=== PATIENT | female | born 1970 | race Caucasian/White ===

== ENCOUNTER 2017-09-19 11:29 | Outpatient (CLI) | payer OTHER | END 2017-09-19 11:30 | disposition home or self-care (01) | LOC: BICRAD 11:29 | PROVIDERS: ATTEND Nurse Practitioner Family | DX: M54.5 Low back pain (principal) | CPT/HCPCS: 72100 ==

== ENCOUNTER 2017-11-25 10:11 | Outpatient (CLI) | payer OTHER ==
--- NOTE | 2017-11-25 12:20 | RAD ---
FOUR VIEWS LUMBAR SPINE INCLUDING FLEXION AND EXTENSION VIEWS: DATE: 11/25/17. HISTORY: Other intervertebral disk degeneration. History of prior low back pain. FINDINGS: There are 5 [id number] lumbar-type vertebral bodies. There is a suggestion of trace anterolist hesis of L4 on L5 with flexion which does appear to correct with extension. No additional level of s ubluxation is seen. There is no evidence of a fracture. The vertebral body heights are within mir l limits. IMPRESSION: Trace anterolisthesis of L4 on L5 which appears to correct on extension when compared to flexion. POS: AMIRA
--- NOTE | 2017-11-25 14:49 | MRI ---
MRI LUMBAR SPINE NONCONTRAST: DATE: 11-25-17 HISTORY: 47-year-old female with M51.36 other intervertebral disc degeneration. Low back pain. COMPARISON: none FINDINGS: For the purposes of this report, it will be assumed that there are 5 lumbar-type vertebrae. The vert ebral body heights are maintained. Alignment is normal. No major pathology of perivertebral spaces. Nonspecific heterogeneous bone marro w signal. Mild disc space narrowing at L5-S1. No severe disc space narrowing at any level. Conus medu llaris terminates at lower L2. The findings by individual levels are as follows: T12-L1: Normal. L1-2: Normal. L2-3: Normal. L3-4: Normal. L4-5: Bilateral mild to moderate degenerative facet changes, including right facet joint effusion. Mi ld to moderate right neural foraminal stenosis. No high grade left neural foraminal stenosis. Small c entral disc protrusion indents the ventral aspect of the thecal sac. No central spinal canal stenosis . Posterior epidural fat pad. Mild thecal sac stenosis. L5-S1: No central or neural foraminal stenosis. No high grade facet DJD. Small central disc herniatio n abuts the thecal sac without significantly narrowing it. IMPRESSION: Mild lumbar spondylosis with mild degenerative disc changes at L4-5 and L5-S1, and mild to moderate f acet osteoarthrosis at L4-5. FERMIN Caballero POS: AMIRA
== END 2017-11-25 10:12 | disposition home or self-care (01) ==
LOC: TBSIIMAG 10:11
PROVIDERS: ATTEND Neurological Surgery
DX: M51.36 Other intervertebral disc degeneration, lumbar region (principal); M47.896 Other spondylosis, lumbar region; M47.897 Other spondylosis, lumbosacral region; M43.16 Spondylolisthesis, lumbar region
CPT/HCPCS: 72120; 72148

== ENCOUNTER 2017-12-26 08:05 | Day surgery (SDC) | payer OTHER ==
[2017-12-20 11:10] VITALS: BMI 35.7
[2017-12-26] MEDS ORDERED: CEFAZOLIN/Water 2 GM/20 ML SYRINGE ONE (10:29)
[2017-12-26] MEDS ORDERED: Sodium Chloride 0.9% 10 ML ONE (11:05)
[2017-12-26] MEDS ORDERED: Fentanyl 250 MCG/5 ML VIAL ONE (11:11)
[2017-12-26] MEDS ORDERED: Midazolam HCl 2 mg/2 ml Vial ONE (11:11)
--- NOTE | 2017-12-26 12:30 | OP ---
DATE OF PROCEDURE: 12/26/2017 SURGEON: Alexandru Armstrong M.D. DIRECTOR SPEECH LANGUAGE: Heron Vargas PA-C PROCEDURES: Left L4-L5 laminectomy, facetectomy, foraminotomy, interbody arthrodesis, intravertebral biomechanical device, local morselized autograft, demineralized bone matrix, posterior lateral arthr odesis L4-5, pedicle screw instrumentation L4-L5. PROCEDURE IN DETAIL: The patient was brought to the operating room and intubated. She was rolled in the prone position on gel-filled chest rolls. Incision made exposing L4 and L5 bilaterally and our level was confirmed by x-ray. We performed left L4-5 laminectomy and facetectomy and identified some extensive synovial debris that was erosive into the facet capsule. We did send several specimens fo r pathologic examination of synovial tissue. A complete facetectomy was performed and a complete dec ompression of left L4 and left L5 was achieved. We then incised the intervertebral disk and complete ly removed it. The bony endplates were decorticated for the purpose of arthrodesis and appropriately sized intravertebral biomechanical PEEK device was brought into the field, filled with demineralized bone matrix, local morselized autograft, and tapped into place securely at L4-5. Next, pedicle scre ws were placed at left L4 and left L5 using lateral fluoroscopic guidance. A derek was secured between the screws, connected by nuts. Compression was applied and the nuts were final tightened. The woun d was then extensively irrigated, immaculate hemostasis was secured. A combination of demineralized bone matrix, local morselized autograft was laid over the right laminar and posterolateral surfaces f or the purpose of arthrodesis. Vancomycin powder was applied and the wound was then closed in anatom ic layers.
[2017-12-26] MEDS ORDERED: Fentanyl 100 MCG/2 ML VIAL ONE ×2 (13:03→13:26)
[2017-12-26] MEDS ORDERED: HYDROmorphone 2 MG/ML VIAL ONE (13:28)
[2017-12-26] MEDS ORDERED: Promethazine HCl 25 MG/ML VIAL ONE (13:52)
[2017-12-26] MEDS ORDERED: Ketorolac Tromethamine 30 MG/ML VIAL ONE (14:05)
[2017-12-26] MEDS ORDERED: Morphine 4 MG/ML VIAL ONE (14:36)
[2017-12-26] MEDS ORDERED: HYDROcodone/Acetaminophen 10/325 mg Tablet ONE (15:05)
== END 2017-12-26 16:37 | disposition home or self-care (01) ==
LOC: SDC 08:05
PROVIDERS: ATTEND Neurological Surgery
PROC: 0SG00AJ Fusion of Lumbar Vertebral Joint with Interbody Fusion Device, Posterior Approach, Anterior Column, Open Approach (ICD-10-PCS; principal; 2017-12-26)
PROC: 0SG0071 Fusion of Lumbar Vertebral Joint with Autologous Tissue Substitute, Posterior Approach, Posterior Column, Open Approach (ICD-10-PCS; principal; 2017-12-26)
DX: M51.16 Intervertebral disc disorders with radiculopathy, lumbar region (principal); Z79.899 Other long term (current) drug therapy
CPT/HCPCS: 76001; 88304; 96374; A4216; C1713; C1768; J1170; J1885; J2250; J2270; J2550; J3010; J3370; J3490

== ENCOUNTER 2018-01-05 09:21 | Outpatient (CLI) | payer OTHER | END 2018-01-05 09:22 | disposition home or self-care (01) | LOC: BICRAD 09:21 | PROVIDERS: ATTEND Physician Assistant | DX: M51.9 Unspecified thoracic, thoracolumbar and lumbosacral intervertebral disc disorder (principal); Z98.890 Other specified postprocedural states | CPT/HCPCS: 72100 ==

== ENCOUNTER 2018-01-13 14:02 | Emergency (ER) | payer OTHER ==
[2018-01-13] MEDS ORDERED: Ketorolac Tromethamine 60 MG/2 ML VIAL ONE (15:46)
--- NOTE | 2018-01-13 16:05 | ULT ---
VENOUS DOPPLER ULTRASOUND OF THE LEFT LOWER EXTREMITY: HISTORY: Back surgery, left lower extremity pain and edema. TECHNIQUE: De La Torre scale ultrasound with color flow and spectral Doppler imaging of the deep venous system of the l eft lower extremity is performed. FINDINGS: There is good flow, compression, and augmentation noted in the left common femoral, femoral, deep fem oral, popliteal, posterior tibial, and the visualized portions of the greater saphenous veins. IMPRESSION: No evidence of deep vein thrombosis in the left lower extremity. POS: C
--- NOTE | 2018-01-21 11:53 | EKG ---
Test Reason : Blood Pressure : / mmHG Vent. Rate : 085 BPM Atrial Rate : 085 BPM P-R Int : 140 ms QRS Dur : 080 ms QT Int : 370 ms P-R-T Axes : 007 016 028 degrees QTc Int : 440 ms Sinus rhythm with Premature atrial complexes Possible Anterior infarct , age undetermined Abnormal ECG Confirmed by JARROD MANZO DO ([id number]), telegraph editor BROOKLYN TRIVEDI ([id number]) on 01/21/2018 11:52:50 AM Referred By: Confirmed By:JARROD MANZO DO
== END 2018-01-13 17:07 | disposition home or self-care (01) ==
LOC: ERS 14:02
DX: M79.662 Pain in left lower leg (principal); E03.9 Hypothyroidism, unspecified; I10 Essential (primary) hypertension; F41.9 Anxiety disorder, unspecified; Z87.891 Personal history of nicotine dependence
CPT/HCPCS: 93005; 96372; J1885

== ENCOUNTER 2018-03-07 13:38 | Outpatient (CLI) | payer OTHER ==
--- NOTE | 2018-03-07 15:02 | RAD ---
LUMBAR SPINE TWO VIEWS: History: 47-year-old female with history of low back pain and M51.36, follow up surgery. FINDINGS: Left L4-5 pedicle screws with intradiscal prosthesis. No significant malalignment. Stable from prior study, 10-19-17. IMPRESSION: Stable post-operative changes at L4-5 with left sided pedicle screws. POS: AMIRA
== END 2018-03-07 13:39 | disposition home or self-care (01) ==
LOC: TBSIIMAG 13:38
PROVIDERS: ATTEND Neurological Surgery
DX: M51.36 Other intervertebral disc degeneration, lumbar region (principal); Z98.890 Other specified postprocedural states
CPT/HCPCS: 72100

== ENCOUNTER 2018-08-22 13:39 | Outpatient (CLI) | payer OTHER ==
--- NOTE | 2018-08-22 16:07 | CT ---
CT LUMBAR SPINE WITHOUT CONTRAST: HISTORY: Low back pain. Pain radiates down the left leg. COMPARISON: None. FINDINGS: There are five lumbar type vertebral bodies. Lumbar spine vertebral body height is maintained. Ther e is no fracture. Unilateral left-sided transpedicular screw at L4 and L5. There does appear to be perihardware lucency involving the left L5 transpedicular screw. There is a facetectomy at L4, on th e left. Disk prosthesis at L4-L5. Of note, the prosthesis appears to extend beyond the posterior ma rgin of the disk and appears to be in the left subarticular zone, with extension into the left neural foramen. There appears to be associated abnormal soft tissue, which may represent scar tissue or re sidual disk material. Abnormal soft tissue is also noted inferior to the partially resected left L4 facet. Symmetric attenuation of the paraspinal and psoas muscles. There is mild posterior paraspinal muscle atrophy. Appropriate attenuation of the visualized solid organs. No retroperitoneal mass, lymphade nopathy, or hematoma. Limited evaluation of the contents of the central spinal canal and neural foramina due to technique. T11-T12/T12-L1: No significant central canal stenosis or foraminal narrowing. L1-L2: No significant central canal stenosis or neural foraminal narrowing. L2-L3: No significant central canal stenosis or neural foraminal narrowing. L3-L4: Minimal generalized disk bulge. No significant central canal stenosis or foraminal narrowing . L4-L5: As stated above, there is abnormal soft tissue attenuation in the left subarticular zone and the left neural foramen and inferior to the partially resected left facet. There is no significant c entral canal stenosis. The right neural foramen is mildly narrowed. There is limited evaluation of the left neural foramen, but there is presumed to be significant left foraminal narrowing. L5-S1: Central disk protrusion abuts the thecal sac. No significant central canal stenosis. Mild b ilateral foraminal narrowing. IMPRESSION: 1. Left-sided fusion changes, as detailed above. There is perihardware lucency involving the left-s ided transpedicular screw. This screw extends beyond the anterior margin of the vertebral body. 2. Abnormal soft tissue attenuation involving the left lateral recess and left neural foramen, which may in part be due to disk prosthesis, as well as post surgical scar. CODE T POS: OFF
== END 2018-08-22 13:40 | disposition home or self-care (01) ==
LOC: TBSIIMAG 13:39
PROVIDERS: ATTEND Neurological Surgery
DX: M54.5 Low back pain (principal); R93.7 Abnormal findings on diagnostic imaging of other parts of musculoskeletal system; Z98.1 Arthrodesis status
CPT/HCPCS: 72131

== ENCOUNTER 2018-11-06 07:47 | Inpatient (IN) | payer OTHER ==
[2018-11-06] MEDS ORDERED: Sodium Chloride 0.9% 10 ML ONE (08:27)
[2018-11-06 08:47] LABS: #Basophils 0.1 thou/uL (0.0-0.2); #Eosinphils 0.2 thou/uL (0.0-0.7); #Lymphocytes 2.6 thou/uL (1.20-3.40); #Monocytes 0.6 thou/uL (0.11-0.59); #Neutrophils 4.1 thou/uL (1.40-6.50); %Basophils 1.2 % (0.0-1.0); %Lymphocytes 33.8 % (21.0-51.0); %Monocytes 8.3 % (0.0-10.0); %Neutrophils 53.8 % (42.0-75.0); Hemoglobin 14.3 g/dL (12.0-16.0); Mean Corpuscular HGB CONC 33.5 g/dL (32.0-36.0); Mean Corpuscular Volume 95.7 fL (78.0-98.0); Mean Platelet Volume 7.5 fL (7.4-10.4); Platelet Count 341 thou/uL (130-400); RBC Distribution Width 14.2 % (11.5-14.5); Red Blood Cell (RBC) Count 4.46 mill/uL (4.20-5.40); White Blood Cell (WBC) Count 7.7 thou/uL (4.8-10.8)
[2018-11-06 09:06] LABS: Anion Gap 19 mmol/L (10-20); BUN (Urea Nitrogen) 10 mg/dL (7.0-18.7); Calc. Creatinine Clearance 151 mL/min (70-130); Calcium 9.5 mg/dL (7.8-10.44); Carbon Dioxide 16 mmol/L (22-29); Chloride 107 mmol/L (98-107); Estimated GFR-MDRD 89; Glucose 91 mg/dL (70-105); Potassium 4.3 mmol/L (3.5-5.1); Sodium 138 mmol/L (136-145)
[2018-11-06] MEDS ORDERED: Midazolam HCl 2 mg/2 ml Vial ONE (09:32)
[2018-11-06] MEDS ORDERED: Fentanyl 100 MCG/2 ML VIAL ONE ×5 (09:33→12:07)
[2018-11-06] MEDS ORDERED: PROPOFOL 200 MG/20 ML VIAL ONE (11:31)
[2018-11-06] MEDS ORDERED: Vecuronium 10 MG VIAL ONE (11:31)
[2018-11-06] MEDS ORDERED: Ondansetron PF 4 MG/2 ML Vial ONE (11:31)
[2018-11-06] MEDS ORDERED: Labetalol HCl 100 MG/20 ML VIAL ONE (11:31)
[2018-11-06] MEDS ORDERED: Dexamethasone 20 MG/5 ML VIAL ONE (11:31)
[2018-11-06] MEDS ORDERED: traMADol HCl 50 MG TAB PO PRN ×2 (11:48)
[2018-11-06] MEDS ORDERED: Morphine 4 MG/ML VIAL SLOW IVP PRN (11:48)
[2018-11-06] MEDS ORDERED: Promethazine HCl 25 MG/ML VIAL IM PRN (11:48)
[2018-11-06] MEDS ORDERED: diphenhydrAMINE 25 MG CAP PO PRN (11:48)
[2018-11-06] MEDS ORDERED: Mag-Al 1200 mg/1200 mg/30 ML UDCUP PO PRN (11:48)
[2018-11-06] MEDS ORDERED: Promethazine 25 MG TAB PO PRN (11:48)
[2018-11-06] MEDS ORDERED: Promethazine HCl 12.5 MG SUPP PR PRN (11:48)
[2018-11-06] MEDS ORDERED: Milk Of Magnesia 30 ML UDCUP PO PRN (11:48)
[2018-11-06] MEDS ORDERED: HYDROcodone/Acetaminophen 10/325 mg Tablet PO PRN (11:48)
[2018-11-06] MEDS ORDERED: Ondansetron PF 4 MG/2 ML Vial IM PRN (11:48)
[2018-11-06] MEDS ORDERED: diphenhydrAMINE 50 MG/ML VIAL IVP PRN (11:48)
[2018-11-06] MEDS ORDERED: Morphine 2 MG/ML SYRINGE SLOW IVP PRN (12:00)
--- NOTE | 2018-11-06 12:19 | OP ---
DATE OF PROCEDURE: 11/06/2018 NUDE MODEL: Justice. PROCEDURE PERFORMED: Exploration of spinal fusion, L4-L5; removal of hardware L4-L5; interbody arthrodesis; posterolateral arthrodesis; pedicle screw instrumentation, L4-L5; BMP. DESCRIPTION OF PROCEDURE: The patient was brought to the operating room and intubated. She was rolled in a prone position on gel-filled chest rolls. The previous incision was reopened and the L4-L5 level was exposed. Prior hardware was identified. The nuts and rods were removed and the L5 screw was found to be loose as anticipated, this was removed. We then explored the L4-L5 disk space, identified the interbody device and it did seem slightly protuberant posteriorly. It was significantly impacted into the intervertebral space and could not be easily removed. We therefore elected to tap the interbody device further into the L4-L5 space, which was accomplished for the purpose of interbody arthrodesis. Next, we placed a new right L5 pedicle screw, which did seem to be quite solid. This was connected by a derek and secured by nuts, which were final tightened. The wound was then extensively irrigated. MAC hemostasis was secured. A combination of BMP and demineralized bone matrix was placed inside a Gelfoam pledget and laid over the right L4-L5 lateral surfaces. Prior to this, the wound had been extensively irrigated and MAC hemostasis was secured. Vancomycin powder was applied and the wound was then closed in anatomic layers. Job ID: [id number]
[2018-11-06 12:36] VITALS: BMI 32.2
[2018-11-06] MEDS: HYDROcodone/Acetaminophen 10/325 mg Tablet PO PRN ×3 (13:00→21:52)
[2018-11-06] MEDS ORDERED: Acetaminophen/Codeine 30-300mg Tablet PO PRN (13:29)
[2018-11-06] MEDS: tiZANidine HCl 4 MG TAB PO PRN ×2 (13:35→22:50)
[2018-11-06] MEDS: CEFAZOLIN 2 GM in Premix Bag 1 BAG IVPB SCH (16:20)
[2018-11-06] MEDS ORDERED: DULoxetine 60 MG CAP PO SCH (21:00)
[2018-11-07] MEDS: CEFAZOLIN 2 GM in Premix Bag 1 BAG IVPB SCH (00:38)
[2018-11-07] MEDS: HYDROcodone/Acetaminophen 10/325 mg Tablet PO PRN ×2 (02:56→07:17)
[2018-11-07] MEDS ORDERED: Levothyroxine Sodium 125 MCG TAB PO SCH (06:00)
[2018-11-07 07:51] VITALS: BP 116/79; TEMP 97.9
--- NOTE | 2018-11-07 10:48 | DIS ---
DATE OF ADMISSION: 11/06/2018 DATE OF DISCHARGE: 11/07/2018 HOSPITAL COURSE: The patient is a 47-year-old female known to us for recent evaluation for left leg pain and progressive low back pain. On her noncontrast CT, she was found to have a posterior migrating interbody device and some halo around the left L5 screw. She underwent revision of her lumbar fusion with replacement of the left L5 screw and repositioning of the interbody device. BMP was placed. There were no complications during the surgery. Following the surgery, the patient was transitioned to the Med/Surg floor, where her pain was well controlled with p.o. medications, she was tolerating a regular diet, and she was voiding appropriately. LSO brace was provided, which the patient has been wearing for all out of bed activities. Her incision remained dry and intact. She reported improvement in her bilateral leg pain and some soreness at the incision site on her back. We will plan to dismiss the patient to home. Discussed home care precautions. We will follow up in 2 weeks. Job ID: [id number]
== END 2018-11-07 10:30 | disposition home or self-care (01) | DRG 460 ==
LOC: SURG A 07:47 → EDSTATUS 14:28
PROVIDERS: ADMIT Neurological Surgery; ATTEND Neurological Surgery
PROC: 0SG00K1 Fusion of Lumbar Vertebral Joint with Nonautologous Tissue Substitute, Posterior Approach, Posterior Column, Open Approach (ICD-10-PCS; principal; 2018-11-06)
PROC: 0SP004Z Removal of Internal Fixation Device from Lumbar Vertebral Joint, Open Approach (ICD-10-PCS; 2018-11-06)
PROC: 3E0U0GB Introduction of Recombinant Bone Morphogenetic Protein into Joints, Open Approach (ICD-10-PCS; 2018-11-06)
DX: T84.226A Displacement of internal fixation device of vertebrae, initial encounter (principal); I10 Essential (primary) hypertension; E07.9 Disorder of thyroid, unspecified; Y83.1 Surgical operation with implant of artificial internal device as the cause of abnormal reaction of the patient, or of later complication, without mention of misadventure at the time of the procedure
CPT/HCPCS: 76000; 80048; 85025; 93005; 93010; C1713; C1768; J0690; J1100; J2250; J2405; J2704; J3010

== ENCOUNTER 2018-11-08 16:39 | Emergency (ER) | payer OTHER ==
[2018-11-08] MEDS ORDERED: Morphine 4 MG/ML VIAL ONE ×2 (18:15→18:52)
[2018-11-08] MEDS ORDERED: Ondansetron PF 4 MG/2 ML Vial ONE (18:15)
[2018-11-08] MEDS ORDERED: Ondansetron ODT 4 MG TAB ONE (18:16)
[2018-11-08 18:51] LABS: #Eosinphils 0.4 thou/uL (0.0-0.7); #Lymphocytes 1.1 thou/uL (1.20-3.40); #Monocytes 0.6 thou/uL (0.11-0.59); #Neutrophils 5.5 thou/uL (1.40-6.50); %Basophils 0.3 % (0.0-1.0); %Eosinophils 5.3 % (0.0-10.0); %Lymphocytes 14.9 % (21.0-51.0); %Monocytes 7.3 % (0.0-10.0); %Neutrophils 72.3 % (42.0-75.0); Hemoglobin 12.6 g/dL (12.0-16.0); Mean Corpuscular HGB CONC 31.7 g/dL (32.0-36.0); Mean Corpuscular Hemoglobin 31.1 pg (27.0-31.0); Mean Corpuscular Volume 98.1 fL (78.0-98.0); Mean Platelet Volume 7.7 fL (7.4-10.4); Platelet Count 262 thou/uL (130-400); RBC Distribution Width 14.1 % (11.5-14.5); Red Blood Cell (RBC) Count 4.04 mill/uL (4.20-5.40); White Blood Cell (WBC) Count 7.6 thou/uL (4.8-10.8)
--- NOTE | 2018-11-08 19:11 | CT ---
CT LUMBAR SPINE WITHOUT CONTRAST: 11/08/18 HISTORY: Spinal surgery, 11/06/18. Low back pain not controlled by meds. COMPARISON: 08/22/18. FINDINGS: Vertebral body heights are maintained. No fracture or subluxation is identified. There are postop changes of unilateral pedicle screw placement on the left at L4-5 level with intradi scal prosthesis in good position. No perihardware lucencies identified. The interlocking vertical derek posteriorly is also intact. There is soft tissue swelling air in this region. Soft tissue air and soft tissue density in the subcutaneous fat of the lower back is consistent with postop change. There is soft tissue density in the left neural foramen inferior to the partially resected left facet at L4-5 level which was also seen on the previous exam. IMPRESSION: Postop changes in the lumbar spine. POS: AMIRA
[2018-11-08 19:19] LABS: ALT (SGPT) 34 U/L (8-55); AST (SGOT) 24 U/L (5-34); Albumin 4.2 g/dL (3.5-5.0); Alkaline Phosphatase 95 U/L (40-150); Anion Gap 13 mmol/L (10-20); BUN (Urea Nitrogen) 12 mg/dL (7.0-18.7); Bilirubin, Total 0.4 mg/dL (0.2-1.2); Calc. Creatinine Clearance 0 mL/min (70-130); Calcium 9.2 mg/dL (7.8-10.44); Carbon Dioxide 31 mmol/L (22-29); Chloride 98 mmol/L (98-107); Estimated GFR-MDRD 89; Globulin 3.3 g/dL (2.4-3.5); Glucose 90 mg/dL (70-105); Potassium 3.8 mmol/L (3.5-5.1); Protein, Total 7.5 g/dL (6.0-8.3); Sodium 138 mmol/L (136-145)
== END 2018-11-08 19:50 | disposition home or self-care (01) ==
LOC: ERS 16:39
DX: G89.18 Other acute postprocedural pain (principal); M54.5 Low back pain; K59.00 Constipation, unspecified; F17.210 Nicotine dependence, cigarettes, uncomplicated; I10 Essential (primary) hypertension; F41.9 Anxiety disorder, unspecified; Z79.899 Other long term (current) drug therapy; Z79.1 Long term (current) use of non-steroidal anti-inflammatories (NSAID)
CPT/HCPCS: 72131; 80053; 85025; 96372; J2270; J2405; Q0162

== ENCOUNTER 2018-11-21 08:46 | Outpatient (CLI) | payer OTHER ==
--- NOTE | 2018-11-21 09:42 | RAD ---
XR Lumbar Spine 2 Or 3 View History: M 43.16 spondylolisthesis of lumbar region Comparison: Radiograph 2018 Findings: New midline surgical lm. The lateral left L4-L5 posterior spinal fusion hardware with similar appearance of the unilateral left-sided discectomy cage which has posterior displacement approximately 5 mm. Anterolisthesis, 2 mm, is similar. Impression: New postoperative findings with posterior lateral subluxation of the interbody cage.
== END 2018-11-21 08:47 | disposition home or self-care (01) ==
LOC: TBSIIMAG 08:46
PROVIDERS: ATTEND Neurological Surgery
DX: M43.16 Spondylolisthesis, lumbar region (principal); S33.140A Subluxation of L4/L5 lumbar vertebra, initial encounter; Z98.890 Other specified postprocedural states
CPT/HCPCS: 72100

== ENCOUNTER 2019-02-21 14:08 | Outpatient (CLI) | payer OTHER ==
--- NOTE | 2019-02-21 15:49 | RAD ---
LUMBAR SPINE TWO VIEWS: HISTORY: Degenerative disk disease. Lumbar pain. COMPARISON: 11/21/2018 FINDINGS: Postoperative changes are again noted. Pedicle screws are seen on the left at L4-L5. There is a disk implant at this level which shows posterior displacement into the spinal canal. This posterior displacement has increased when compared to 11/21/2018. Vertebral bodies and disk spaces otherwise appear unchanged from the recent exam. Mild loss of disk s pace at L5-S1 again noted. IMPRESSION: Posterior displacement of the disk implant at L4-L5 into the spinal canal has increased. POS: TPC
== END 2019-02-21 14:09 | disposition home or self-care (01) ==
LOC: BICRAD 14:08
PROVIDERS: ATTEND Neurological Surgery
DX: M51.36 Other intervertebral disc degeneration, lumbar region (principal); M51.26 Other intervertebral disc displacement, lumbar region
CPT/HCPCS: 72100

== ENCOUNTER 2019-05-22 13:03 | Outpatient (CLI) | payer OTHER ==
--- NOTE | 2019-05-22 13:44 | RAD ---
Lumbar spine 2 views: 05/22/2019 COMPARISON: 02/21/2019 HISTORY: Evaluate lumbar spine following surgery, lumbar radiculopathy FINDINGS: Stable left-sided pedicle screw present at L4 and L5 with a vertically oriented interlocki ng derek. There is a stable intervertebral disc device at L4-5 demonstrating posterior migration overlying the expected location of the left lateral recess. Clips are noted in the right lower quadra nt. Bilateral mild lower lumbar spine facet hypertrophy is unchanged. IMPRESSION: Stable 2 view examination of the lumbar spine. Findings demonstrate a posteriorly displac ed intervertebral disc device at L4-5 as detailed above.
== END 2019-05-22 13:04 | disposition home or self-care (01) ==
LOC: TBSIIMAG 13:03
PROVIDERS: ATTEND Neurological Surgery
DX: M54.16 Radiculopathy, lumbar region (principal)
CPT/HCPCS: 72100

== ENCOUNTER 2019-09-28 07:17 | Day surgery (SDC) | payer OTHER ==
[2019-09-21 14:55] VITALS: BMI 28.1
[2019-09-28 07:57] VITALS: BP 127/79; TEMP 98.2
--- NOTE | 2019-09-28 08:56 | RAD ---
LUMBAR MYELOGRAM: HISTORY: Lumbar radiculopathy. EXPOSURE: 0.5 minutes, 92.7 mGy*^m2. FINDINGS: Two-view scouts lumbar spine radiograph demonstrates unilateral left-sided transpedicular screw at L4 and L5. There appears to be perihardware lucency involving the L4 and L5 screw. L4-L5 disc prosthesis, posterior to the L4-L5 disc space. No spondylolisthesis or spondylolysis. No fracture.. Successful lumbar myelogram. A total of 9 cc of Isovue-M 200 contrast was administered intrathecally at the L2-L3 level. TECHNIQUE: Consent was obtained to perform a lumbar myelogram. Patient's back was evaluated. The L2-L3 level was deemed appropriate. Skin was prepped and draped in a sterile fashion. 1% lidocaine, buffered with bicarbonate was used for local anesthesia. Under fluoroscopic guidance, a 22-gauge spinal needle was advanced into the CSF space. There is prompt flow of clear CSF into the hub of the needle. Via a short tubing catheter, 9 cc of Isovue-M 200 contrast was administered intrathecally. Patient tolerate d the procedure well. No immediate or postprocedure complications. IMPRESSION: Successful lumbar puncture. Please refer to separate post myelogram lumbar spine CT report for furthe r detail. Transcribed Date/Time: 09/28/2019 10:09 AM
--- NOTE | 2019-09-28 09:48 | CT ---
POSTMYELOGRAM LUMBAR SPINE CT: HISTORY: Lumbar radiculopathy. Previous lumbar fusion. COMPARISON: None. FINDINGS: Five lumbar-type vertebrae. Lumbar spine vertebral body heights are maintained. No fracture. No spond ylolisthesis or spondylolysis. Unilateral left-sided transpedicular screw at L4 and L5. There is significant perihardware lucency in volving the left L5 transpedicular screw. Disc prosthesis at L4-L5 which has migrated posteriorly space. Appropriate attenuation of the visualized solid organs and paraspinal muscles. Visualized alimentary canal has appropriate attenuation. Presacral fat is preserved. Conus medullaris terminates at the mid L2 level. T11-T12 and T12-L1: No significant central canal stenosis or significant neural foraminal narrowing. L1-L2: Adequate disc space height. No significant central canal stenosis or significant neural forami nal narrowing. L2-L3: Adequate disc space height. No significant central canal stenosis or significant neural forami nal narrowing. L3 3-L4: Adequate disc space height. Broad-based disc bulge minimally flattens the ventral thecal sac . Mild ligamentum flavum thickening and facet hypertrophy. Overall mild central canal stenosis. Neural foramina are patent bilaterally. L4-L5: Postsurgical changes compatible with posterior element bone graft material, left-sided transpe dicular screw as well as partial resection of the left inferior facet. There is a disc prosthesis which has migrated posteriorly with respect to the disc space and appears to be in the left neural fo ramen. There is no significant stenosis of the thecal sac. Moderate right foraminal narrowing likely due to residual disc material. Severe left foraminal narrowing is suspected predominantly due to postoperative changes including migration of a disc prosthesis. L5-S1: Surgical changes compatible with placement of a left-sided transpedicular screw. There is misbah hardware lucency. Broad-based disc bulge abuts the thecal sac. No significant central canal stenosis. Mild bilateral neural foraminal narrowing. Minimal vacuum disc phenomenon at the L5 5-S1 di sc space is noted. IMPRESSION: 1. Left-sided transpedicular screw placement at L4 and L5. Perihardware lucency along the course of t he left L5 transpedicular screw. 2. Posterior migration of the L4-L5 disc prosthesis now into the left neural foramen. There is severe left neural foraminal narrowing at L4-L5. Transcribed Date/Time: 09/28/2019 9:58 AM
[2019-09-28] MEDS ORDERED: Iopamidol-M 200 41% 20 ML VIAL ONE (13:02)
== END 2019-09-28 09:35 | disposition home or self-care (01) ==
LOC: RAD 07:17
PROVIDERS: ATTEND Family Medicine
PROC: B02B10Z Computerized Tomography (CT Scan) of Spinal Cord using Low Osmolar Contrast, Unenhanced and Enhanced (ICD-10-PCS; principal; 2019-09-28)
DX: M54.16 Radiculopathy, lumbar region (principal); D64.9 Anemia, unspecified; I10 Essential (primary) hypertension; F41.9 Anxiety disorder, unspecified; F32.9 Major depressive disorder, single episode, unspecified; E66.9 Obesity, unspecified; E03.9 Hypothyroidism, unspecified; Z68.28 Body mass index [BMI] 28.0-28.9, adult; Z79.899 Other long term (current) drug therapy; Z87.891 Personal history of nicotine dependence; Z98.1 Arthrodesis status
CPT/HCPCS: 62304; 72132; Q9966

== ENCOUNTER 2020-04-09 15:00 | Inpatient (IN) | payer OTHER ==
[2020-04-11 11:19] VITALS: BMI 31.3
[2020-04-14] MEDS ORDERED: Sodium Chloride 0.9% 0 ML ONE (06:54)
[2020-04-14] MEDS ORDERED: HYDROmorphone 0.5 MG/0.5 ML SYRINGE ONE (07:37)
[2020-04-14] MEDS ORDERED: Fentanyl 100 MCG/2 ML VIAL ONE ×2 (07:37→10:41)
[2020-04-14] MEDS ORDERED: Dexmedetomidine 200 MCG/2 ML VIAL ONE (07:37)
[2020-04-14] MEDS ORDERED: Sodium Chloride 0.9% 10 ML ONE (09:10)
[2020-04-14] MEDS ORDERED: Sterile Water 10 ML ONE (09:11)
[2020-04-14] MEDS ORDERED: Promethazine HCl 25 MG/ML VIAL IM PRN (09:31)
[2020-04-14] MEDS ORDERED: PACU-Morphine 4MG/ML VIAL SLOW IVP PRN (09:31)
[2020-04-14] MEDS ORDERED: Promethazine HCl 25 MG/ML VIAL SLOW IVP PRN (09:31)
[2020-04-14] MEDS ORDERED: HYDROmorphone 2 MG/ML VIAL SLOW IVP PRN (09:31)
[2020-04-14] MEDS ORDERED: Ondansetron HCl/PF 4 MG/2 ML Vial IVP PRN (09:31)
[2020-04-14] MEDS ORDERED: PROPOFOL 200 MG/20 ML VIAL ONE (09:35)
[2020-04-14] MEDS ORDERED: Dexamethasone 20 MG/5 ML VIAL ONE (09:35)
[2020-04-14] MEDS ORDERED: Lidocaine 1% PF 5 ML VIAL ONE (09:35)
[2020-04-14] MEDS ORDERED: Glycopyrrolate 0.2 MG/ML 5 ML SYRINGE ONE (09:35)
[2020-04-14] MEDS ORDERED: Ketorolac Tromethamine 30 MG/ML VIAL ONE (09:35)
[2020-04-14] MEDS ORDERED: Rocuronium Bromide 10 MG/ML (10ML VIAL) ONE (09:35)
[2020-04-14] MEDS ORDERED: Ondansetron PF 4 MG/2 ML Vial ONE (09:35)
--- NOTE | 2020-04-14 11:04 | OP ---
DATE OF PROCEDURE: 04/14/2020 [employer]BON LAMP CLEANER: Bozena Rendon PA-C PROCEDURES PERFORMED: Removal of hardware L4-L5, expiration of spinal fusion L4-L5, posterolateral arthrodesis, BMP, cancellous bone chips. DESCRIPTION OF PROCEDURE: The patient was brought to the operating room and intubated. She was rolled in a prone position on gel-filled chest rolls. The previous incision was reopened and the L4-L5 level was exposed. We identified the prior hardware. We removed the nuts, derek and screws. We did find the L5 screw to be quite loose. We next explored the interbody device and removed this. A complete decompression was achieved. Next, a posterolateral surfaces of L4-L5 were prepared for the purpose of arthrodesis and a combination of BMP on Gelfoam and cancellous bone chips were laid over the lateral recesses for the purpose of arthrodesis. Vancomycin powder was then applied and MAC hemostasis was secured. The wound was closed in anatomic layers. Job ID: [id number]
[2020-04-14] MEDS ORDERED: Promethazine 25 MG TAB PO PRN (12:30)
[2020-04-14] MEDS ORDERED: diphenhydrAMINE 25 MG CAP PO PRN (12:30)
[2020-04-14] MEDS ORDERED: Morphine 4 MG/ML VIAL SLOW IVP PRN (12:30)
[2020-04-14] MEDS ORDERED: Ondansetron PF 4 MG/2 ML Vial IM PRN (12:30)
[2020-04-14] MEDS ORDERED: traMADol HCl 50 MG TAB PO PRN ×2 (12:30)
[2020-04-14] MEDS ORDERED: Mag-Al 1200 mg/1200 mg/30 ML UDCUP PO PRN (12:30)
[2020-04-14] MEDS ORDERED: Milk Of Magnesia 30 ML UDCUP PO PRN (12:30)
[2020-04-14] MEDS ORDERED: Promethazine HCl 12.5 MG SUPP PR PRN (12:30)
[2020-04-14] MEDS ORDERED: Acetaminophen/Codeine 30-300mg Tablet PO PRN (12:30)
[2020-04-14] MEDS ORDERED: diphenhydrAMINE 50 MG/ML VIAL IVP PRN (12:30)
[2020-04-14] MEDS: Sodium Chloride 0.9% 1,000 ML IV SCH (12:44)
[2020-04-14] MEDS: tiZANidine HCl 4 MG TAB PO PRN ×2 (13:27→20:39)
[2020-04-14] MEDS: CEFAZOLIN 2 GM in Premix Bag 1 BAG IVPB SCH ×2 (13:30→21:45)
[2020-04-14] MEDS: Morphine 2 MG/ML VIAL SLOW IVP PRN ×2 (18:06→20:39)
[2020-04-14] MEDS ORDERED: DULoxetine 60 MG CAP PO SCH (21:00)
[2020-04-14] MEDS: Acetaminophen/Codeine 30-300mg Tablet PO PRN (21:47)
[2020-04-15] MEDS: Acetaminophen/Codeine 30-300mg Tablet PO PRN ×3 (00:51→09:27)
[2020-04-15] MEDS: Sodium Chloride 0.9% 1,000 ML IV SCH (00:53)
--- NOTE | 2020-04-15 08:00 | DIS ---
DATE OF ADMISSION: 04/14/2020 DATE OF DISCHARGE: 04/15/2020 PROCEDURE: Removal of hardware and interbody device at L4-L5. DISCHARGE SUMMARY: The patient is a 49-year-old female, who was recently evaluated in our office for continued lumbar radicular pain. She had a migrated interbody device on CT and some loosening of her hardware. The patient underwent removal of her hardware at L4-L5 and the interbody device on 04/14/2020. Following the surgery, she was transitioned to the Med/Surg floor, where her pain has been well controlled with p.o. medications, she is tolerating a regular diet and voiding appropriately. She ambulated easily in the halls. She got her LSO brace, which she has been wearing for out of bed activities. I will dismiss her to home and follow up in 2 weeks. Scripts sent to her pharmacy, Tylenol No. 4, Zanaflex, and Keflex. I will follow up in 2 weeks. Job ID: [id number]
[2020-04-15 11:04] VITALS: BP 125/74; TEMP 98.6
== END 2020-04-15 12:07 | disposition home or self-care (01) | DRG 460 ==
LOC: SURG A 04-14 06:37
PROVIDERS: ADMIT Neurological Surgery; ATTEND Neurological Surgery
PROC: 0SG0071 Fusion of Lumbar Vertebral Joint with Autologous Tissue Substitute, Posterior Approach, Posterior Column, Open Approach (ICD-10-PCS; principal; 2020-04-14)
PROC: 0SP00JZ Removal of Synthetic Substitute from Lumbar Vertebral Joint, Open Approach (ICD-10-PCS; 2020-04-14)
PROC: 3E0U0GB Introduction of Recombinant Bone Morphogenetic Protein into Joints, Open Approach (ICD-10-PCS; 2020-04-14)
DX: T84.226A Displacement of internal fixation device of vertebrae, initial encounter (principal); Z20.828 Contact with and (suspected) exposure to other viral communicable diseases; M54.16 Radiculopathy, lumbar region; I10 Essential (primary) hypertension; K21.9 Gastro-esophageal reflux disease without esophagitis; E03.9 Hypothyroidism, unspecified; I73.9 Peripheral vascular disease, unspecified; D64.9 Anemia, unspecified; E66.9 Obesity, unspecified; Y83.8 Other surgical procedures as the cause of abnormal reaction of the patient, or of later complication, without mention of misadventure at the time of the procedure; F41.9 Anxiety disorder, unspecified; Z90.710 Acquired absence of both cervix and uterus; Z87.891 Personal history of nicotine dependence; Z68.31 Body mass index [BMI] 31.0-31.9, adult; Z79.890 Hormone replacement therapy; Z79.899 Other long term (current) drug therapy
CPT/HCPCS: 76000; C1713; J0690; J1100; J1170; J1885; J2270; J2405; J2704; J3010; J3370; J3490

== ENCOUNTER 2020-04-10 07:00 | Outpatient (CLI) | payer OTHER ==
[2020-04-10 18:02] LABS: Hemoglobin 12.6 g/dL (12.0-16.0); Mean Corpuscular HGB CONC 32.6 G/DL (32.0-36.0); Mean Corpuscular Hemoglobin 31.2 PG (27.0-33.0); Mean Corpuscular Volume 95.5 fl (80.0-100.0); Mean Platelet Volume 11.1 fl (7.4-10.4); Platelet Count 282 10x3/uL (130-400); RBC Distribution Width 12.3 % (11.5-14.5); Red Blood Cell (RBC) Count 4.04 10x6/uL (3.90-5.20)
[2020-04-10 18:33] LABS: Anion Gap 12 mmol/L (10-20); BUN (Urea Nitrogen) 32 mg/dL (7.0-18.7); Calc. Creatinine Clearance 0 mL/min (70-130); Calcium 9.7 mg/dL (7.8-10.44); Carbon Dioxide 30 mmol/L (22-29); Chloride 102 mmol/L (98-107); Glucose 88 mg/dL (70-105); Sodium 139 mmol/L (136-145)
[2020-04-11 03:12] LABS: SARS-CoV-2 MS2 Positive; SARS-CoV-2 N Gene Negative; SARS-CoV-2 S Gene Negative; SARS-CoV-2 by NAA Not Detected (NotDetected); SARS-CoV-2 orf1ab Negative
== END 2020-04-10 07:01 | disposition home or self-care (01) ==
LOC: LABBT 07:00
PROVIDERS: ATTEND Neurological Surgery
DX: Z01.818 Encounter for other preprocedural examination (principal); M54.16 Radiculopathy, lumbar region; Z20.828 Contact with and (suspected) exposure to other viral communicable diseases
CPT/HCPCS: 80048; 85027; 87635; 93005; 93010; U0003

== ENCOUNTER 2020-04-30 08:46 | Outpatient (CLI) | payer OTHER ==
--- NOTE | 2020-04-30 11:24 | RAD ---
LUMBAR SPINE 2 VIEWS: HISTORY: Lumbar radiculopathy. Postop followup. COMPARISON: 05/22/2019. FINDINGS: Skin lm are seen posteriorly. The pedicle screws noted on the left at L4-5 on the prior study h ave been removed. The interbody implant at L4-5 has also been removed. The lumbar vertebrae maintain height. The disk spaces are preserved. Slight anterolisthesis at L4-5 is noted. No other interval change. POS: AGW
== END 2020-04-30 08:47 | disposition home or self-care (01) ==
LOC: TBSIIMAG 08:46
PROVIDERS: ATTEND Neurological Surgery
DX: M54.16 Radiculopathy, lumbar region (principal)
CPT/HCPCS: 72100

== ENCOUNTER 2020-05-13 14:10 | Outpatient (CLI) | payer OTHER ==
--- NOTE | 2020-05-13 14:25 | RAD ---
Exam: 2 views lumbar spine HISTORY: Lumbar radiculopathy COMPARISON: 04/30/2020 FINDINGS: Interval removal of posterior skin lm. There are 5 lumbar type vertebra. Lumbar spine vertebral body height is maintained. No fracture. Mild loss of disc space height at L5-S1. Grade 1 anterolisthesis of L4 upon L5, unchanged and measuring 3.4 mm. Visualized sacrum and bony pelvis are intact. Posterior skin lm are presumed to be present on th e AP projection IMPRESSION: Interval removal of skin lm. Otherwise, no significant change.
== END 2020-05-13 14:11 | disposition home or self-care (01) ==
LOC: TBSIIMAG 14:10
PROVIDERS: ATTEND Neurological Surgery
DX: M54.16 Radiculopathy, lumbar region (principal)
CPT/HCPCS: 72100

== ENCOUNTER 2020-09-25 12:36 | Outpatient (CLI) | payer OTHER | END 2020-09-25 12:37 | disposition home or self-care (01) | LOC: BICMRI 12:36 | PROVIDERS: ATTEND Neurological Surgery | DX: M54.16 Radiculopathy, lumbar region (principal); Z98.890 Other specified postprocedural states | CPT/HCPCS: 72100; 72158; 82565 ==